=== PATIENT | male | born 1960 | race Caucasian/White ===

== ENCOUNTER 2021-08-06 16:48 | Emergency (ER) | payer OTHER, SELFPAY ==
[2021-08-06 16:50] VITALS: BP 142/80; PULSE 87; RESP 20; TEMP 36.9; O2SAT 95
--- NOTE | 2021-08-06 16:55 | DI.RAD.S_ITS ---
PROCEDURE: XR CHEST 2V INDICATIONS: fever TECHNIQUE: 2 views of the chest were acquired. COMPARISON: None. FINDINGS: Surgical changes and devices: None. Lungs and pleura: Bilateral interstitial type infiltrates are seen. Low lung volumes are noted. This causes a crowded appearance to the lung markings and limits evaluation. No pleural effusions or pneumothorax. Mediastinum: Mediastinal contours are normal. Heart size is normal. Bones and chest wall: No suspicious bony abnormalities. Age-appropriate bony degenerative changes are seen. Soft tissues appear unremarkable. IMPRESSION: Bilateral interstitial infiltrates are seen. Please consider COVID pneumonia. Dictated by: Robert Freitas M.D. on 08/06/2021 at 16:19 Approved by: Robert Freitas M.D. on 08/06/2021 at 16:19
[2021-08-06 17:12] LABS: COVID19 -Nasal RAPID POSITIVE (Negative)
--- NOTE | 2021-08-06 20:33 | ED_ITS ---
HPI - Fever General Chief Complaint: Fever Stated Complaint: fevers Time Seen by Provider: 08/06/21 18:26 Source: patient Mode of arrival: Ambulatory History of Present Illness HPI Narrative: 60M presents with his significant other and a chief complaint of persistent low- grade fevers and a dry and hacking cough at least for the past few days but more likely approximately 10 or so. He denies any significant shortness of breath. He is nauseated but denies any vomiting. He states that he feels a bit confused and abnormal particularly when he is having a fever. He had an episode on the toilet tonight when his fever was quite elevated and he felt a bit disoriented briefly. He denies blurred vision or trouble with speech. He denies any ongoing dizziness or neurologic symptoms such as extremity numbness, tingling or weakness. He has not been vaccinated against COVID. He has known positive test at least a few days ago but did test negative as an outpatient yesterday Review of Systems Review of Systems Narrative: GENERAL: See HPI HEENT: Denies sinus pain, ear pain, sore throat, difficulty swallowing, dizziness. RESPIRATORY: See HPI CARDIOVASCULAR: Denies chest pain, palpitations, orthopnea, edema, GASTROINTESTINAL: Denies nausea, vomiting, abdominal pain, diarrhea, constipation, melena. : Denies dysuria, frequency, incontinence, hematuria, urinary retention. MUSCULOSKELETAL: denies weakness, joint pain, or bony pain SKIN: Denies rash, skin lesions, or other NEUROLOGIC: See HPI PSYCHIATRIC: No concerning psychosocial issues. 12 point review of systems is negative except for those stated above Exam Narrative Exam Narrative: GENERAL: 60 [] year old patient appears stated age. Well-developed patient, in mild distress. No significant work of breathing, no conversational dyspnea or need for supplemental oxygen HEAD: Atraumatic. Normocephalic. EYES: Pupils equal round and reactive. Extraocular motions intact. No scleral icterus. No injection or drainage. ENT: Nose without bleeding, purulent drainage. Throat without erythema, tonsillar hypertrophy or exudate. Airway patent. NECK: Trachea midline. Non tender CARDIOVASCULAR: Regular rate and rhythm without murmurs, gallops, or rubs. RESPIRATORY: Clear to auscultation. Breath sounds equal bilaterally. No wheezes, rales, or rhonchi. GASTROINTESTINAL: Abdomen soft, non-tender, nondistended. EXTREMITIES: No edema or joint tenderness. BACK: Nontender without deformity or crepitance. No flank tenderness. NEURO: AOx3. SKIN: No rash or erythema of visible areas Initial Vital Signs Initial Vital Signs: Vital Signs Temperature 98.5 F 08/06/21 16:50 Pulse Rate 87 08/06/21 16:50 Respiratory Rate 20 08/06/21 16:50 Blood Pressure 142/80 H 08/06/21 16:50 Pulse Oximetry 95 08/06/21 16:50 Course Orders Ordered: ED Orders 08/06/21 20:50 C-Reactive Protein Quant Stat Complete Blood Count AUTO DIFF Stat Comprehensive Metabolic Panel Stat Ferritin Stat Lactate (Lactic Acid) Stat Lactate Dehydrogenase Stat NT-proBNP (BNP-Adult 18+) Stat Procalcitonin Stat Troponin & CK Cardiac Panel Stat 08/06/21 21:10 Blood Culture Stat Vital Signs Vital signs: Vital Signs - 8 hr 08/06/21 21:58 Pulse Rate 78 Respiratory Rate 20 Blood Pressure 132/87 Pulse Oximetry 99 MDM - Fever Lab Data Result diagrams: 08/06/21 20:50 08/06/21 20:50 Labs: Lab Results 08/06/21 08/06/21 08/06/21 Range/Units 16:57 20:50 20:50 WBC 4.0 L (4.5-11.0) X10^3/uL RBC 4.55 (4.5-5.9) X10^6/uL Hgb 13.8 (13.5-17.5) g/dL Hct 40.9 L (41-53) % MCV 89.8 (80-100) fL MCH 30.3 (26-34) PG MCHC 33.7 (30-36) % RDW 14.4 (11.6-14.8) % Plt Count 234 (150-400) X10^3/uL Neut % (Auto) 67.4 (50-75) % Lymph % (Auto) 22.4 L (25-40) % [place] % (Auto) 9.0 (3-14) % Eos % (Auto) 0.4 L (2-4) % Baso % (Auto) 0.8 (0-2) % Neut # (Auto) 2700 (0803-0682) /uL Lymph # (Auto) 900 L (0937-6049) /uL [place] # (Auto) 400 (0-900) /uL Eos # (Auto) 0 (0-450) /uL Baso # (Auto) 0 (0-100) /uL Sodium 135 L (137-145) mmol/L Potassium 3.5 (3.4-5.1) mmol/L Chloride 100 (98-107) mmol/L Carbon Dioxide 26 (22-32) mmol/L BUN 18 (9-20) mg/dL Creatinine 1.13 (0.66-1.25) mg/dL Estimated GFR > 60.0 (>60) mL/min BUN/Creatinine Ratio 15.9 (6-22) Glucose 153 H (80-110) mg/dL Lactate (0.7-2.1) mmol/L Calcium 8.6 (8.4-10.2) mg/dL Ferritin 1350 H (18-464) ng/mL Total Bilirubin 0.8 (0.2-1.3) mg/dL AST 69 H (17-59) IU/L ALT 97 H (<50) IU/L Alkaline Phosphatase 83 (38-126) U/L Lactate Dehydrogenase 745 H (313-618) U/L Total Creatine Kinase 235 H (55-170) U/L CK-MB (CK-2) 1.28 (<2.37) ng/mL CK-MB (CK-2) Rel Index 0.5 L (1.5-5.0) % Troponin I < 0.012 (0.01-0.034) ng/mL C-Reactive Protein 1.5 H (<1.0) mg/dL NT-Pro-B Natriuret Pep 34 (<125) pg/mL Total Protein 7.3 (6.3-8.2) g/dL Albumin 4.1 (3.5-5.0) g/dL Globulin 3.2 (1.7-4.1) g/dL Albumin/Globulin Ratio 1.3 (1.0-2.8) Procalcitonin 0.15 (<0.5) ng/mL SARS-CoV-2 (PCR) Positive H (Negative) 08/06/21 Range/Units 20:50 WBC (4.5-11.0) X10^3/uL RBC (4.5-5.9) X10^6/uL Hgb (13.5-17.5) g/dL Hct (41-53) % MCV (80-100) fL MCH (26-34) PG MCHC (30-36) % RDW (11.6-14.8) % Plt Count (150-400) X10^3/uL Neut % (Auto) (50-75) % Lymph % (Auto) (25-40) % [place] % (Auto) (3-14) % Eos % (Auto) (2-4) % Baso % (Auto) (0-2) % Neut # (Auto) (4706-5880) /uL Lymph # (Auto) (1030-3891) /uL [place] # (Auto) (0-900) /uL Eos # (Auto) (0-450) /uL Baso # (Auto) (0-100) /uL Sodium (137-145) mmol/L Potassium (3.4-5.1) mmol/L Chloride (98-107) mmol/L Carbon Dioxide (22-32) mmol/L BUN (9-20) mg/dL Creatinine (0.66-1.25) mg/dL Estimated GFR (>60) mL/min BUN/Creatinine Ratio (6-22) Glucose (80-110) mg/dL Lactate 1.6 (0.7-2.1) mmol/L Calcium (8.4-10.2) mg/dL Ferritin (18-464) ng/mL Total Bilirubin (0.2-1.3) mg/dL AST (17-59) IU/L ALT (<50) IU/L Alkaline Phosphatase (38-126) U/L Lactate Dehydrogenase (313-618) U/L Total Creatine Kinase (55-170) U/L CK-MB (CK-2) (<2.37) ng/mL CK-MB (CK-2) Rel Index (1.5-5.0) % Troponin I (0.01-0.034) ng/mL C-Reactive Protein (<1.0) mg/dL NT-Pro-B Natriuret Pep (<125) pg/mL Total Protein (6.3-8.2) g/dL Albumin (3.5-5.0) g/dL Globulin (1.7-4.1) g/dL Albumin/Globulin Ratio (1.0-2.8) Procalcitonin (<0.5) ng/mL SARS-CoV-2 (PCR) (Negative) Imaging Data Chest x-ray: Radiologist's Impression: [address] [address] XRay Report Signed Patient: Raul Godwin MR#: [id number] : 1960 Acct:[id number] Age/Sex: 60 / M Date of Service: 08/06/21 Loc: ED Accession Number: [id number] ?? Procedure: XR chest 2V Ordering Provider: Devin Boggs D.O. PROCEDURE:? XR CHEST 2V ? INDICATIONS:? fever ? TECHNIQUE:? 2 views of the chest were acquired.? ? COMPARISON:? None. ? FINDINGS:? ? Surgical changes and devices:? None.? ? Lungs and pleura:? Bilateral interstitial type infiltrates are seen. Low lung volumes are noted. This causes a crowded appearance to the lung markings and limits evaluation.? ? No pleural effusions or pneumothorax.? ? Mediastinum:? Mediastinal contours are normal.? Heart size is normal.? ? Bones and chest wall:? No suspicious bony abnormalities.? Age-appropriate bony degenerative changes are seen.? Soft tissues appear unremarkable.? IMPRESSION:? Bilateral interstitial infiltrates are seen.? Please consider COVID pneumonia.? ? ? Dictated by: Robert Freitas M.D. on 08/06/2021 at 16:19 ? ? MDM Narrative Medical decision making narrative: Patient with a reassuring history and physical exam. Has had symptoms for COVID for least a week. He demonstrates no signs of respiratory distress, no use of accessory muscles, hypoxemia or need for supplemental oxygen. Labs are reassuring, chest x-ray is classic for COVID. Patient is stable and appropriate for discharge. He has had extensive discussion regarding return precautions and questions have been answered to his apparent satisfaction Discharge Plan Departure Patient Disposition: Home Clinical Impression: COVID-19 Instructions: DI for COVID-19 (Suspected or Confirmed ) Activity Restrictions/Additional Instructions: *You have been diagnosed with [ COVID-19] *What to do: * per recommendations from the CDC and the [facility] Department of Health * stay home except to get medical care. Restrict activities outside your home, except for getting medical care. Do not go to work, school, or public areas. Avoid using public transportation, ride sharing, or taxis. * separate yourself from other people in your home. * call ahead before visiting your doctor * Wear a facemask * Cover your coughs and sneezes * Clean your hands often * Avoid sharing household items * Clean all high-touch services every day * Monitor your symptoms and seek prompt medical attention if your illness i s worsening, particularly with difficulty in breathing. You may discontinue your isolation when: 1. You have been fever-free for at least 24 hours without the use of fever reducing medication, AND 2. Your symptoms are getting better, AND 3. At least 5 days have passed since symptoms first appeared 4. If you have fever, continue to stay home until fever resolves Individuals with laboratory confirmed COVID-19 who have not had any symptoms may discontinue home isolation when at least 5 days have passed since the date of their first COVID-19 diagnostic test and have had no subsequent illness You should notifiy any friends and family that have been in close contact *If up to date on COVID Vaccines, then they do not need to quarantine unless symptoms develop. Get tested on day 5 (or sooner if symptoms develop). Take precautions and watch for symptoms until day 10 *If NOT up to date on COVID Vaccines, then CDC recommends quarantine for at least 5 full days. Wear a well fitted mask at home if you must be around others. If they develop symptoms they should get tested. If they remain asymptomatic they should get tested on day 5. They should take precautions and monitor for symptoms until day 10.
[2021-08-06 20:59] LABS: Add Manual Diff / Slide Review NO; Basophils Absolute Auto 0 /uL (0-100); Basophils Percent Auto 0.8 % (0-2); Eosinophils Absolute Auto 0 /uL (0-450); Eosinophils Percent Auto 0.4 % (2-4); Hematocrit 40.9 % (41-53); Hemoglobin 13.8 g/dL (13.5-17.5); Lymphocytes Absolute Auto 900 /uL (1100-4500); Lymphocytes Percent Auto 22.4 % (25-40); Mean Corpuscular HGB Conc 33.7 % (30-36); Mean Corpuscular Hemoglobin 30.3 PG (26-34); Mean Corpuscular Volume 89.8 fL (80-100); Monocytes Absolute Auto 400 /uL (0-900); Neutrophils Absolute Auto 2700 /uL (1500-7000); Neutrophils Percent Auto 67.4 % (50-75); Platelet Count 234 X10^3/uL (150-400); Red Blood Cell Count 4.55 X10^6/uL (4.5-5.9); Red Cell Distribution Width 14.4 % (11.6-14.8)
[2021-08-06 21:11] LABS: Lactate (Lactic Acid) 1.6 mmol/L (0.7-2.1)
[2021-08-06 21:13] LABS: Alanine Aminotransferase 97 IU/L (<50); Albumin 4.1 g/dL (3.5-5.0); Albumin Globulin Ratio 1.3 (1.0-2.8); Alkaline Phosphatase 83 U/L (38-126); Aspartate Aminotransferase 69 IU/L (17-59); BUN Creatinine Ratio 15.9 (6-22); Bilirubin Total 0.8 mg/dL (0.2-1.3); Blood Urea Nitrogen 18 mg/dL (9-20); C-Reactive Protein Quant 1.5 mg/dL (<1.0); Calcium 8.6 mg/dL (8.4-10.2); Carbon Dioxide 26 mmol/L (22-32); Chloride 100 mmol/L (98-107); Creatine Kinase 235 U/L (55-170); Estimated Glomerular Filt Rate > 60.0 mL/min (>60); Globulin 3.2 g/dL (1.7-4.1); Glucose 153 mg/dL (80-110); HEMOLYSIS < 15 (0-50); Lactate Dehydrogenase 745 U/L (313-618); Potassium 3.5 mmol/L (3.4-5.1); Sodium 135 mmol/L (137-145); Total Protein 7.3 g/dL (6.3-8.2)
[2021-08-06 21:22] LABS: NT-proBNP (BNP-Adult 18+) 34 pg/mL (<125); Troponin I < 0.012 ng/mL (0.01-0.034)
[2021-08-06 21:26] LABS: CKMB % Relative Index 0.5 % (1.5-5.0); Creatine Kinase MB 1.28 ng/mL (<2.37)
[2021-08-06 21:27] LABS: Procalcitonin 0.15 ng/mL (<0.5)
[2021-08-06 21:58] VITALS: BP 132/87; PULSE 78; RESP 20; O2SAT 99
[2021-08-06 22:37] LABS: Ferritin 1350 ng/mL (18-464)
== END 2021-08-06 21:58 | disposition home or self-care (01) ==
PROVIDERS: Emergency Medicine; Emergency Provider Emergency Medicine
DX: U07.1 COVID-19 (principal)
CPT/HCPCS: 36415; 71046; 80053; 82550; 82553; 82728; 83605; 83615; 83880; 84145; 84484; 85025; 86140; 87040; 87635; 99283; 99284; C9803